=== PATIENT | female | born 1960 | race Caucasian/White ===

== ENCOUNTER → 2023-07-26 12:50 | Outpatient (REF) | payer OTHER, SELFPAY ==
--- NOTE | 2023-07-26 12:59 | CA_ITS ---
Transthoracic Echocardiogram Patient (Last, First, Middle): Layla Bills, Gender: Female Date of : 1960 Age: 63 Procedure Date: 07/26/2023 Procedure Type: Transthoracic Echocardiogram Location: OP Height: 170.18 cm Weight: 78.47 kg BSA: 1.90 m2 Heart Rate: bpm BP: 122 / 80 mmHg Business System Manager: MARIANNE Referring MD: Matilda Magaña MD General Surgeon: Arcenio Elliott MD Symptoms: DYSPNEA, R06.00 Study Quality: Fair ECG Rhythm: Sinus Conclusions: - 1. Normal LV ejection fraction of 60-65% with grade 1 diastolic dysfunction 2. Normal cardiac valvular Doppler 3. Upper limits of normal ascending aortic size 4. No gross pericardial effusion Findings Left Ventricle Normal left ventricular size, thickness, and systolic function. The visually estimated ejection fraction is between 60-65%. Spectral Doppler is indicative of an impaired relaxation filling pattern. E/E prime ratio is <8, consistent with normal filling pressures. Evidence suggests grade I (mild) diastolic dysfunction. Right Ventricle Normal right ventricular cavity size and systolic function. Atria Both atria are normal in size. Interatrial shunt cannot be excluded. Aortic Valve Normal aortic valve structure and function. There is no aortic valve stenosis. There is no aortic valve regurgitation. Mitral Valve Normal mitral valve structure and function. There is trace mitral valve regurgitation. There is no mitral valve stenosis. Pulmonic Valve The pulmonic valve is likely normal. There is trace to mild pulmonic valve regurgitation. Tricuspid Valve Normal tricuspid valve structure. Tricuspid regurgitation envelope is inadequate for calculation of right ventricular systolic pressure. Normal right atrial pressure. Great Vessels The pulmonary artery was not well visualized. Venous The inferior vena cava is normal in size and collapses greater than 50% with inspiration. Pericardium/Pleural There is no evidence of pericardial effusion. Prior Study Comparison No prior study available for comparison. Measurements 2D Linear Measurements IVSd: 1.10 0.6-0.9/0.6-1.0 cm LVIDd: 3.80 3.9-5.3/4.2-5.9 cm LVIDd Index: 2.00 2.4-3.2/2.2-3.1 cm/m2 LVIDs: 2.50 2.0-3.6 cm LVPWd: 1.20 0.7-1.1 cm LA Diam: 2.50 2.7-3.8/3.0-4.0 cm LAIDs Index: 1.32 1.5-2.3 cm/m2 LV Mass: 178.99 67-162/88-224 g LV Mass Index: 94.21 43-95/49-115 g/m2 LVOT Diam: 2.00 3.0+(-)1.3 cm 2D Systolic Function EF 4C: 58.80 >55% EF 2C: 68.40 >55% EF BiP: 63.50 >55% Mitral Valve MV Pk E: 0.58 MV PK A: 0.72 MV Decel Time: 249.00 E/A: 0.80 E'Lateral: 7.72 E'Medial: 5.33 E/E' Med: 10.80 E/E' Lat: 7.50 PHT: 73.00 MVA PHT: 3.01 Decel Treasure: 2.32 Aortic Valve AoV Pk Bravo: 1.22 AoV Mn Bravo: 0.85 AoV VTI: 0.24 AoV Pk Grad: 6.00 Aov Mn Grad: 3.00 QUYEN Cont.VTI: 2.85 LVOT LVOT Pk Bravo: 0.99 LVOT Mn Bravo: 0.67 LVOT VTI: 0.22 LVOT Pk Grad: 4.00 LVOT Mn Grad: 2.00 LVOT Diam: 2.00 LVOT Area: 3.14 Diastolic Function MV Pk E: 0.58 MV Pk A: 0.72 E/A: 0.80 E'Medial: 5.33 E/E' Med: 10.80 E' Laterial: 7.72 E/E' Lat: 7.50 Right Ventricle TAPSE (mm): 23.00 TVS' Bravo: 12.40 Tricuspid Valve RA Press: 3.00 Great Vessels Aorta Sinus of Valsalva: 3.70 2.0-3.[address] Ridge: 3.00 1.7-3.4 cm Ao Asc: 3.50 2.1-3.4 cm Updated in Other Vendor System with Status of Final Arcenio Elliott MD electronically signed on 07/26/2023 4:22:37 PM with status of Final
== END ==
LOC: HO.CARD 12:50
PROVIDERS: Visit Provider Internal Medicine
DX: R06.00 Dyspnea, unspecified (principal)
CPT/HCPCS: 93306

== ENCOUNTER → 2023-07-26 12:59 | Outpatient (BNV) | payer OTHER, SELFPAY | PROVIDERS: Visit Provider Internal Medicine Cardiovascular Disease | DX: I37.1 Nonrheumatic pulmonary valve insufficiency (principal) | CPT/HCPCS: 93306 ==